=== PATIENT | male | born 1950 | race Caucasian/White ===

== ENCOUNTER 2024-07-26 05:48 | Day surgery (SDC) | payer MEDICARE ==
[2024-07-24 10:50] LABS: BASOPHILS # (AUTO) 0.04 K/uL (0.00-0.20); BASOPHILS % (AUTO) 0.7 % (0.0-5.0); EOSINOPHILS # (AUTO) 0.12 K/uL (0.00-0.70); EOSINOPHILS % (AUTO) 2.1 % (0.0-8.0); HEMATOCRIT 45.2 % (42-54); IMMATURE GRANULOCYTE ABSOLUTE 0.04 K/uL (0-1); LYMPHOCYTES # (AUTO) 1.4 K/uL (1.0-4.8); LYMPHOCYTES % (AUTO) 23.9 % (21.0-51.0); MEAN CORPUSCULAR HEMOGLOBIN 31.5 pg (27.0-33.0); MEAN CORPUSCULAR HGB CONC 33.8 g/dL (32.0-36.0); MEAN CORPUSCULAR VOLUME 93.2 fL (79-99); MONOCYTES # (AUTO) 0.6 K/uL (0.1-1.0); MONOCYTES % (AUTO) 9.9 % (3.0-13.0); NEUTROPHILS # (AUTO) 3.6 K/uL (1.8-7.7); NEUTROPHILS % (AUTO) 62.7 % (40.0-77.0); PLATELET COUNT (AUTO) 184 K/uL (130-400); RED BLOOD CELL COUNT(AUTO) 4.85 MIL/uL (4.50-6.20); RED CELL DISTRIBUTION WIDTH 12.5 % (11.0-15.5); WHITE BLOOD COUNT (AUTO) 5.7 K/uL (4.8-10.8)
[2024-07-24 10:53] VITALS: BP 146/84; PULSE 111; RESP 15; TEMP 97.9
--- NOTE | 2024-07-24 10:53 | EKG ---
[facility] Test Date: 2024-07-24 Test Time: 11:32:15 Pat Name: DONNA BUCK Department: [facility] Room: Gender: M Yam Curer: [id number] : 1950 Requested By: JASON HECTOR Order Number: [id number] Reading MD: Olesya Osullivan Measurements Intervals [place] Rate: 108 P: 55 OH: 139 QRS: 90 QRSD: 181 T: -5 QT: 394 QTc: 530 Interpretive Statements Sinus tachycardia Right bundle branch block Compared to ECG 06/07/2022 13:20:28 Sinus rhythm no longer present Electronically Signed On 07-25-2024 17:09:25 DISH [employer]ER by Olesya Osullivan Please click the below link to view image of tracing.
[2024-07-24 10:57] LABS: CREATININE 1.1 mg/dL (0.5-1.3); INR 1.29 (0.85-1.15); POTASSIUM 3.9 mmol/L (3.5-5.1); PROTHROMBIN TIME 14.1 SEC (9.6-11.6)
[2024-07-24 10:58] LABS: PARTIAL THROMBOPLASTIN TIME 38.4 SEC (26.3-35.5)
[2024-07-26] VITALS (16 sets, daily range): BP systolic 85–146; BP diastolic 58–90; PULSE 79–110; RESP 13–18; TEMP 97.4–97.8
[~2024-07-26] VITALS: Ht 190.5 cm; Wt 134.1 kg
[~2024-07-26 05:48] MED LIST: AMLO-258 PO; CHLO25TA3 PO; DRON400T7 PO; GABA300C PO; LISI40TA9 PO; POTASSIUM PO; RIVA20TA PO
[2024-07-26] MEDS ORDERED: ePHEDrine SULFate 50 MG/ML AMPULE ONE (07:29)
[2024-07-26] MEDS ORDERED: GLYCOPYRROLATE 0.2 MG/ML 5 ML VIAL ONE (07:29)
[2024-07-26] MEDS ORDERED: phenylEPHRINE HCL 10 MG/ML 1ML VIAL IV ONE (07:29)
[2024-07-26] MEDS ORDERED: ondanSETRON 4MG INJ ONE (07:29)
[2024-07-26] MEDS ORDERED: LIDOCAINE HCL MPF 1% 5ML VIAL ONE (07:29)
[2024-07-26] MEDS ORDERED: NEOSTIGMINE METHYLSULFATE 1MG/ML IV ONE (07:29)
[2024-07-26] MEDS ORDERED: dexaMETHasone SOD PHOSPHATE 10MG/ML 1ML VIAL ONE (07:29)
[2024-07-26] MEDS ORDERED: rocuRONium bROMide 10MG/1ML 5ML VL ONE (07:30)
[2024-07-26] MEDS ORDERED: proPOFol 10 MG/ML 20ML VIAL IV ONE (07:30)
[2024-07-26] MEDS ORDERED: FENTanyl CITRate PF 50 MCG/1 ML 2ML VIAL ONE (07:30)
[2024-07-26] MEDS ORDERED: LIDOCAINE HCL 1% MDV 50ML VIAL ONE (07:48)
[2024-07-26] MEDS ORDERED: HEParin 10,000 UNIT/10ML (1,000 UNIT/ML) VIAL ONE ×4 (07:48→11:39)
[2024-07-26] MEDS ORDERED: HEParin-NS 1,000 UNIT/500 ML 1,500 ML IV ONE (07:49)
[2024-07-26] MEDS: 0.9%NACL 1000ML 1,000 ML IV SCH (08:15)
[2024-07-26] MEDS ORDERED: HEParin-NS 1,000 UNIT/500 ML 500 ML IV ONE (12:52)
[2024-07-26] MEDS ORDERED: PROTamine SULFate 10 MG/ML 25ML VIAL IV ONE (13:39)
[2024-07-26] MEDS ORDERED: PANTOPrazole 40 MG TAB DR PO ONE (14:00)
[2024-07-26] MEDS ORDERED: AMIOdarone 200 MG TABLET PO ONE (14:00)
[2024-07-26] MEDS ORDERED: PANT40TA55 PO (14:06)
[2024-07-26] MEDS ORDERED: AMIO200T68 PO (14:06)
[2024-07-26] MEDS ORDERED: COLC0.6C3 PO (15:00)
--- NOTE | 2024-07-26 15:45 | NUR ---
D/C PT AND SPOUSE GIVEN D/C INSTRUCTIONS. RT GROIN FREE FROM S/S OF HEMATOMA OR BLEEDING. PT TAKEN OUT VIA W/C IN NO DISTRESS. SPOUSE AT SIDE.
== END 2024-07-26 15:45 | disposition home or self-care (01) ==
LOC: DAH 05:48
PROVIDERS: ATTEND Student in an Organized Health Care Education/Training Program
DX: I48.4 Atypical atrial flutter (principal); I48.19 Other persistent atrial fibrillation; I10 Essential (primary) hypertension; Z98.890 Other specified postprocedural states; Z82.49 Family history of ischemic heart disease and other diseases of the circulatory system; Z79.899 Other long term (current) drug therapy
CPT/HCPCS: 80048; 85025; 85610; 85730; 36415; 93005; 93656; 93655; 93657 ×2; C1894 ×2; C1732 ×3; A4649 ×2; C1760 ×3; C1766; J3010; J1100; J3490 ×5; J1644 ×6; J2704; J2405; J2710; J2371; A4215; A4222; A4221; A4663; A4216; A4606; J2720; A4223 ×3

== ENCOUNTER → 2024-10-05 | Outpatient (CLI) | payer MEDICARE ==
[~2024-10-05] MED LIST changes: +AMIO200T68 PO; +COLC0.6C3 PO; -DRON400T7 PO; +GADOTERATE MEGLUMINE 10 MMOL/20 ML VIAL IV ONE; +PANT40TA55 PO
--- NOTE | 2024-10-05 16:12 | HMCIMG ---
MR SPINAL CANAL, LUMB W/WO CON HISTORY: Right lower extremity pain COMPARISON: None TECHNIQUE: MRI of the lumbar spine was performed utilizing multiple pulse sequences in axial , coronal and sagittal plane. Patient was given 20 cc of Clariscan through intravenous route. FINDINGS: Endplate degenerative changes are seen at L2-3 level. No abnormal enhancement is seen. No abnormal signal intensity is seen of the visualized bony structure. No loss of vertebral height is seen. There is straightening of normal lumbar curvature which may be related to muscle spasm or positioning. Degenerative disc signals are present at all lumbar spine levels. Visualized distal conus is unremarkable. There is mild scoliosis. At the L1-2 level, there is spondylotic disc with bilateral ligamentum flavum hypertrophy causing anterior thecal sac compression with bilateral lateral recess stenosis and bilateral neural foraminal stenosis. The thecal sac measures approximately 6.6 mm in its anterior posterior dimension. At the L2-3 level, there is spondylotic disc with bilateral ligamentum flavum hypertrophy causing anterior thecal sac compression with bilateral lateral recess stenosis and bilateral neural foraminal stenosis. The thecal sac measures approximately 7.2 mm in its anterior posterior dimension. At the L3-4 level, there is spondylotic disc with bilateral ligamentum flavum hypertrophy causing anterior thecal sac compression with bilateral lateral recess stenosis and bilateral neural foraminal stenosis. The thecal sac measures approximately 8.9 mm in its anterior posterior dimension. At the L4-5 level, there is spondylotic disc with bilateral ligamentum flavum hypertrophy causing anterior thecal sac compression with bilateral lateral recess stenosis and bilateral neural foraminal stenosis. The thecal sac measures approximately 7.9 mm in its anterior posterior dimension. At the L5-S1 level, there is spondylotic disc causing anterior thecal sac compression with bilateral lateral recess stenosis and bilateral neural foraminal stenosis. The thecal sac measures approximately 11 mm in its anterior posterior dimension. IMPRESSION: 1. 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
== END | disposition home or self-care (01) ==
LOC: RAH 12:54
PROVIDERS: ATTEND Family Medicine
DX: M47.26 Other spondylosis with radiculopathy, lumbar region (principal); M48.07 Spinal stenosis, lumbosacral region; M51.16 Intervertebral disc disorders with radiculopathy, lumbar region; M47.817 Spondylosis without myelopathy or radiculopathy, lumbosacral region
CPT/HCPCS: 72158; A9575